=== PATIENT | female | born 1995 | race Caucasian/White ===

== ENCOUNTER 2021-05-04 20:03 | Emergency (ER) | payer SELFPAY ==
[~2021-05-04] VITALS: Ht 167.6 cm; Wt 104.5 kg
[2021-05-04 20:20] VITALS: BP 114/74
--- NOTE | 2021-05-04 20:50 | PHYS DOC ---
Adult General HPI HPI Patient is an otherwise healthy 25-year-old female, up-to-date on tetanus vaccinations who presents with finger pain. States that she noticed earlier today in her left index finger some redness around the knuckle and some tenderness. States that it hurts, 5 out of 10, dull and achy in nature with no radiation. Denies any recent traumas, travel, fevers chest pain, shortness of breath, abdominal pain, nausea, vomiting. States she had not tried anything for the pain yet. Review of Systems Review of Systems Review of systems otherwise unremarkable except noted in HPI Physical Exam Physical Exam Constitutional: Well developed, well nourished, no acute distress, non-toxic appearance. [] HENT: Normocephalic, atraumatic, bilateral external ears normal, oropharynx moist, no oral exudates, nose normal. [] Cardiovascular:Heart rate regular rhythm, no murmur [] Extremities: Left index finger with mild swelling and tenderness in between DIP and MCP. Neurovascular exam intact. Range of motion intact. Neurologic: Alert and oriented X 3, no focal deficits noted. [] Psychologic: Affect normal, judgement normal, mood normal. [] EKG EKG [] Radiology/Procedures Radiology/Procedures [] Heart Score C/O Chest Pain: No Risk Factors: Risk Factors: DM, Current or recent (<one month) smoker, HTN, HLP, family history of CAD, obesity. Risk Scores: Risk Factors: DM, Current or recent (<one month) smoker, HTN, HLP, family history of CAD, obesity. Course & Med Decision Making Course & Med Decision Making Patient is a 25-year-old female who presents with finger pain and swelling Vital signs not concerning. Physical exam noted above. Patient started on antibiotics in the ED for cellulitis. Given pain medication in the ED. Discussed all findings with patient and advised on pain management at home. Advised to take antibiotics as prescribed. Advised to call primary care physician first thing in the morning to set up a follow-up as soon as possible. Gave strict return precautions to the ED. Patient grateful, verbalized understanding and agreed with plan of discharge. [] Dragon Disclaimer Dragon Disclaimer This electronic medical record was generated, in whole or in part, using a voice recognition dictation system. Departure Departure: Impression: Primary Impression: Cellulitis of index finger Disposition: HOME / SELF CARE / HOMELESS Condition: GOOD Referrals: KRUPA DELACRUZ (PCP) Patient Instructions: Cellulitis Additional Instructions: Thank you for coming into the emergency department tonight and allowing us to ta ke care of you. Please read the attached information very carefully to go back over what we discussed. Please take all of your antibiotics as prescribed. You can begin a Tylenol, ibuprofen and ice regimen as discussed. Please use your prescription pain medicine only as needed for breakthrough pain. As discussed you must call your primary care physician first thing in the morning to discuss your ED visit and set up a post ER follow-up visit for wound check and reevaluation in 2 to 3 days. As discussed if you are unable to get into your primary care physician, please return to the emergency department with any new or concerning symptoms or your wound check and reevaluation as discussed. Scripts Hydrocodone Bit/Acetaminophen (HYDROCODONE-APAP 5-325 ) 1 Each Tablet 1 TAB PO TID PRN for finger pain for 2 Days, #6 TAB 0 Refills Prov: RAYMOND FARFAN MD 05/04/21 Amoxicillin/Potassium Clav (AUGMENTIN 875-125 TABLET) 1 Each Tablet 1 TAB PO BID for cellulitis for 10 Days, #20 TAB 0 Refills Prov: RAYMOND FARFAN MD 05/04/21 RAYMOND FARFAN MD May 04, 2021 20:50
[2021-05-04] MEDS ORDERED: IBUPROFEN 600 MG TABLET. PO ONE (21:15)
[2021-05-04] MEDS ORDERED: AMOXICILLIN/K CLAV 875/125MG TABLET. PO ONE (21:15)
[2021-05-04] MEDS ORDERED: HYDROcodone/APAP 5/325MG 1 TAB TABLET PO ONE (21:15)
[2021-05-04] MEDS ORDERED: AMOX1TAB61 PO (21:26)
[2021-05-04] MEDS ORDERED: HYDR-2155 PO (21:29)
== END 2021-05-04 21:45 | disposition home or self-care (01) ==
LOC: ER 20:03
DX: L03.012 Cellulitis of left finger (principal)
CPT/HCPCS: 99284